=== PATIENT | female | born 1990 | race African-American/Black ===

== ENCOUNTER 2018-10-25 16:19 | Emergency (ER) | payer SELFPAY ==
[~2018-10-25] VITALS: Ht 157.5 cm; Wt 48.0 kg
[2018-10-25 16:22] VITALS: BP 93/59
== END 2018-10-25 21:00 | disposition left against medical advice (07) ==
LOC: ER 16:19
DX: R11.2 Nausea with vomiting, unspecified (principal); Z53.21 Procedure and treatment not carried out due to patient leaving prior to being seen by health care provider

== ENCOUNTER 2024-09-07 17:26 | Emergency (ER) | payer MEDICAID ==
[~2024-09-07] VITALS: Ht 157.5 cm; Wt 49.0 kg
[2024-09-07 17:28] VITALS: O2SAT 100
[2024-09-07 18:19] LABS: CLARITY URINE CLEAR (CLEAR); COLOR URINE YELLOW (YELLOW); GLUCOSE URINE NEGATIVE (NEGATIVE); KETONES URINE NEGATIVE (NEGATIVE); LEUKOCYTE ESTERASE URINE 3+ (NEGATIVE); NITRITE URINE NEGATIVE (NEGATIVE); OCCULT BLOOD URINE NEGATIVE (NEGATIVE); PROTEIN URINE NEGATIVE (NEGATIVE); SPECIFIC GRAVITY URINE 1.015 (1.005-1.030)
[2024-09-07 18:20] LABS: BASOPHILS % 0.7 % (0.0-2.0); EOSINOPHILS % 0.5 % (0.0-5.0); HEMATOCRIT. 35.4 % (36.0-48.0); LYMPHOCYTES % 44.9 % (20.0-50.0); MEAN CORPUSCULAR HGB CONC 33.9 g/dL (31.0-37.0); MEAN CORPUSCULAR VOLUME 94.3 fL (81.0-99.0); MEAN PLATELET VOLUME 8.1 fl (7.4-10.4); MONOCYTES % 8.9 % (2.0-8.0); PLATELET 230 x1000/uL (130-400); RED BLOOD CELL COUNT 3.75 mill/uL (4.2-5.4); WHITE BLOOD COUNT 4.9 x1000/uL (4.5-11.0)
[2024-09-07] MEDS: ACETAMINOPHEN 325MG TABLET PO ONE (18:20)
[2024-09-07] MEDS: LEVETIRACETAM 1000MG PREMIX 100 ML IV ONE (18:20)
[2024-09-07 18:27] LABS: *AMPHETAMINES SCREEN URINE NEGATIVE (NEGATIVE); *BARBITURATES SCREEN URINE NEGATIVE (NEGATIVE); *BENZODIAZEPINES SCREEN URINE NEGATIVE (NEGATIVE); *COCAINE SCREEN URINE NEGATIVE (NEGATIVE); CANNABINOID URINE SCREEN PRESUMPTIVE POSITIVE (NEGATIVE); ECSTASY MDMA SCREEN URINE NEGATIVE (NEGATIVE); METHADONE URINE SCREEN NEGATIVE (NEGATIVE); OPIATES URINE SCREEN NEGATIVE (NEGATIVE); PHENCYCLIDINE URINE SCREEN NEGATIVE (NEGATIVE)
[2024-09-07 18:28] LABS: CHLORIDE 106 mEq/L (98-107); POTASSIUM 3.9 mEq/L (3.5-5.1); SODIUM 138 mEq/L (136-145)
[2024-09-07 18:29] LABS: CALCIUM 9.5 mg/dL (8.7-10.4); CARBON DIOXIDE 26 mEq/L (21-32)
[2024-09-07 18:34] LABS: CREATININE 0.7 mg/dL (0.6-1.0); GLUCOSE 90 mg/dL (70-105); UREA NITROGEN BLOOD 14 mg/dL (9-23)
[2024-09-07 18:36] LABS: RBC URINE 0-2 /hpf (0-2)
[2024-09-07 18:37] LABS: BACTERIA URINE 1+; SQUAMOUS EPITHELIAL CELL URINE 1+ /lpf (RARE/1+)
[2024-09-07 18:47] LABS: ETHANOL BLOOD < 10 mg/dL (<10)
[2024-09-07 18:57] LABS: HCG SCREEN NEGATIVE
[2024-09-07] MEDS: SODIUM CHLORIDE 0.9% 1,000 ML IV ONE (19:49)
[2024-09-07] MEDS: KETOROLAC 30MG/ML VIAL IV ONE (20:23)
[2024-09-07] MEDS: CEFTRIAXONE 1GM/50ML 50 ML IV ONE (20:23)
[2024-09-07] MEDS ORDERED: NITR-87 MT (21:08)
[2024-09-07] MEDS ORDERED: METR-167 MT (21:08)
[2024-09-07 21:41] VITALS: BP 104/61; PULSE 75; RESP 16; O2SAT 100
== END 2024-09-07 21:45 | disposition home or self-care (01) ==
LOC: ER 17:26
DX: G40.909 Epilepsy, unspecified, not intractable, without status epilepticus (principal); N39.0 Urinary tract infection, site not specified; N76.0 Acute vaginitis; Z79.899 Other long term (current) drug therapy
CPT/HCPCS: 80305; 80048; 81003; 80320; 84703; 85025; 87210; 36415; 70450; 96367; 96361; 96365; 96375; 99285; J1953; J0696; J1885; J7030; G0480